=== PATIENT | female | born 1995 ===

== ENCOUNTER 2018-08-01 09:23 | Emergency (ER) | payer SELFPAY ==
[2018-08-01] MEDS ORDERED: Ibuprofen 800 MG TAB ONE (10:13)
[2018-08-01] MEDS ORDERED: Dexamethasone 10 MG/ML VIAL ONE (10:13)
== END 2018-08-01 10:17 | disposition home or self-care (01) ==
LOC: ERS 09:23
DX: J02.9 Acute pharyngitis, unspecified (principal); J45.909 Unspecified asthma, uncomplicated
CPT/HCPCS: 87081; 87430; 99283; J1100